=== PATIENT | male | born 1975 ===

== ENCOUNTER 2017-05-21 20:38 | Emergency (ER) | payer OTHER ==
[2017-05-21 20:47] VITALS: BMI 22.6
[2017-05-21 20:51] VITALS: BP 128/79; PULSE 73; RESP 18; TEMP 98.5; O2SAT 97
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
== END 2017-05-21 22:35 | disposition home or self-care (01) ==
LOC: ED 20:38
DX: M54.9 Dorsalgia, unspecified (principal)
CPT/HCPCS: 96372; 99284; J1885